=== PATIENT | female | born 1955 | race Caucasian/White ===

== ENCOUNTER 2018-05-21 09:31 | Day surgery (SDC) | payer MEDICARE ==
[~2018-05-21 09:31] MED LIST: Buffered Lidocaine 1% SYRIN* 1 ML/SYRINGE INTRADERM ONE; Lactated Ringers 1000 ML Bag* 1,000 ML IV SCH
[2018-05-21] MEDS ORDERED: Buffered Lidocaine 1% SYRIN* 1 ML/SYRINGE ONE (09:50)
[2018-05-21] MEDS ORDERED: ceFAZolin 2 GM PREMIX in ORs 2 GM/50 ML BAG IVPB ONE (10:06)
[2018-05-21] MEDS ORDERED: Propofol* 10 MG/ML 20 ML BTL ONE (10:54)
[2018-05-21] MEDS ORDERED: Lidocaine 2% PF * 5 ML VIAL ONE (10:55)
[2018-05-21] MEDS ORDERED: ROPIVACAINE 5 MG/ML 30 ML BTL (0.5%) ONE (10:55)
[2018-05-21] MEDS ORDERED: EPINEPHRINE 1 MG/ML 1 ML VIAL ONE (10:55)
[2018-05-21] MEDS ORDERED: Midazolam* 1 MG/ML 2 ML VIAL (2 MG) ONE (10:55)
[2018-05-21] MEDS ORDERED: fentaNYL* 50 MCG/ML 2 ML VIAL (100 MCG VIAL) ONE ×2 (10:55→16:21)
[2018-05-21] MEDS ORDERED: Dexamethasone IV* 4 MG/ML 1 ML (4 MG) ONE (10:56)
[2018-05-21] MEDS ORDERED: Bupivacaine 0.25% SDV PF* 10 ML VIAL INJ ONE (13:26)
[2018-05-21] MEDS ORDERED: Rocuronium* 10 MG/ML VIAL ONE (14:23)
[2018-05-21] MEDS ORDERED: oxyCODONE TAB* 5 MG TAB PO PRN (15:14)
[2018-05-21] MEDS ORDERED: Acetaminophen TAB* 325 MG PO PRN (15:14)
[2018-05-21] MEDS ORDERED: Naloxone* 0.4 MG/ML 1 ML VIAL IV PRN (15:14)
[2018-05-21] MEDS ORDERED: DiMENhydriNATE IV* 50 MG/ML VIAL IV PUSH PRN (15:14)
[2018-05-21] MEDS ORDERED: Ketorolac INJ* 30 MG/ML 1 ML VIAL ONE (15:43)
[2018-05-21] MEDS ORDERED: Metoclopramide IV* 5 MG/ML 2 ML VIAL ONE (15:43)
[2018-05-21] MEDS ORDERED: Ondansetron INJ* 2 MG/ML VIAL ONE (15:43)
[2018-05-21] MEDS ORDERED: Sugammadex * 200 MG/2 ML VIAL IV PUSH ONE (15:44)
[2018-05-21] MEDS ORDERED: oxyCODONE TAB* 5 MG TAB ONE (16:21)
[2018-05-21] MEDS: fentaNYL* 50 MCG/ML 2 ML VIAL (100 MCG VIAL) IV PRN ×2 (16:24→16:53)
[2018-05-21 17:23] VITALS: BP 124/77
--- NOTE | 2018-05-22 07:22 | OP ---
DATE OF OPERATION: 05/21/18 [facility] DATE OF : 59 SURGEON: Dino Epperson MD PLASTIC PARTS DESIGNER: JEAN-PIERRE Navarrete. An floral assistant was needed for the entirety of the procedure to aid in positioning of the arm and retraction. ANESTHESIOLOGIST: Dr. Ochoa. ANESTHESIA: General. PRE-OP DIAGNOSES: 1. Right stage 3 basal joint arthritis. 2. Right middle finger mucous cyst. 3. Right volar wrist ganglion. POST-OP DIAGNOSES: 1. Right stage 3 basal joint arthritis. 2. Right middle finger mucous cyst. OPERATIVE PROCEDURE: 1. Right thumb carpometacarpal arthroplasty with trapeziectomy. 2. Distally based split flexor carpi radialis tendon transfer for thumb suspension and tendon interposition. 3. Excision of mucous cyst, right middle finger. INDICATIONS: Kacey has very severe basal joint arthritis. It is very painful. Pain has been going on for a couple of years. She has had injections. Additionally, she has the mucous cyst and she had a volar wrist ganglion cyst at the time I saw her in the office; however, after she had her most recent injection, this had gone down to the point that we did not really need to address it today at the time of surgery. ESTIMATED BLOOD LOSS: 5 mL. COMPLICATIONS: None. FINDINGS: See above and below. DESCRIPTION OF PROCEDURE: Kacey was seen in the preoperative holding area. The correct site, side, and procedure were identified. We came back to the operating room and the arm was prepped and draped in the usual fashion and a time-out was performed. The arm was exsanguinated with the Esmarch and the tourniquet was inflated to 250 mmHg. I first made a T-shaped incision over the mucous cyst on the distal aspect of the middle finger. A full-thickness skin flap was raised. The mucous cyst was excised. It was right near the eponychium. This was handed off as a specimen. I then traced this back to the interval where it emanated from the area between the radial collateral ligament and the terminal extensor tendon. This area was excised, soft tissue there was excised, and the area cauterized. Once I had done that, I irrigated out the wound. The skin was closed with 4-0 nylon suture. I then made a 2 to 3 cm incision over the dorsal radial thumb base. Dissection was carried down longitudinally to preserve the sensory nerve. The radial artery was retracted out of the way. I raised full thickness subperiosteal and capsular flaps to expose all about the trapezium. The soft tissue was released all about the trapezium. The trapezium was then excised in a piece meal fashion with the rongeur in its entirety. I then examined the scaphotrapezoid joint. The cartilage there looked good. The distal pole of the scaphoid in general looked good. The CMC joint was very arthritic. The FCR tendon was preserved in the base of the wound. After I had excised the trapezium, I released the soft tissue off the dorsal radial thumb base and then I used sequentially larger drill bits to create a bone tunnel from the dorsal radial aspect of the proximal metacarpal extending out the volar ulnar articular surface of the metacarpal near the insertion of the FCR tendon. The area was irrigated out and we turned our attention to harvesting the tendon. I made a V-shaped incision over the distal aspect of the FCR tendon, dissection was carried down. There was a little bit of cystic material there. This was excised, but it was not large enough so I did not sent it out for a specimen. I then opened up the FCR tendon sheath. I released the sheath distally. I then came about 8 cm proximal and made a second transverse incision. The sheath was opened proximally and I released the sheath under the skin along the entirety of the tendon. I pulled the tendon up out of the distal wound and split it longitudinally with a 15- blade. A 26-gauge wire was passed through the tendon split. I then used a Floresita clamp to pull the tendon from the distal wound up into the proximal wound splitting the tendon longitudinally and releasing it at the musculotendinous junction. The end of the tendon was secured with 3-0 Ethibond suture. I then used two 26-gauge wires to pass the tendon down into the thumb base wound. The split was carried out all the way to its insertion. The free end of the tendon was taken through the bone tunnel and then moved back around the intact limb of the FCR tendon. The tension was set and the tendon transfer was secured with three [id number] 3-0 Ethibond sutures, the first sewing all 3 limbs of the tendon transfer together, the second two sewing intact limb to intact limb. The remainder of the free end of the tendon was rolled up as a ball and then secured with a 3-0 Ethibond suture and then docked as an interposition between the base of the metacarpal and the distal pole of the scaphoid. The capsule was then closed with 3-0 Vicryl suture taking care not to sew in the radial artery. The wound was irrigated out. The skin was closed on all of the incisions with 4-0 nylon suture. Marcaine was infiltrated all around the operative area and a digital block was performed as well on that middle finger. Xeroform, 4x4, sterile Webril, and then a thumb spica splint was applied. Tourniquet was deflated, hand pinked up immediately. She was taken to the recovery room in stable condition. [id number] #: [id number]
== END 2018-05-21 17:27 | disposition home or self-care (01) ==
LOC: OR 09:31
PROVIDERS: ATTEND Orthopaedic Surgery Hand Surgery
DX: M18.11 Unilateral primary osteoarthritis of first carpometacarpal joint, right hand (principal); M67.441 Ganglion, right hand; I10 Essential (primary) hypertension; Z72.0 Tobacco use
CPT/HCPCS: 88304; 88311; A9270-GY; J0690; J1100; J1885; J2250; J2405; J2704; J2765; J2795; J3010; J3490